=== PATIENT | female | born 1990 | race Caucasian/White ===

== ENCOUNTER 2024-11-11 09:16 | Inpatient (IN) | payer OTHER, BC, SELFPAY ==
[2024-11-11] MEDS: LR 1000 IV ×2 (10:15→15:30)
[2024-11-11 10:16] LABS: Hematocrit 33.9 % (37.0-47.0); Hemoglobin 11.8 g/dL (12.0-16.0); Mean Corp Hgb Conc. 34.8 g/dL (33.0-37.0); Mean Platelet Volume 11.3 fL (7.4-10.4); Platelet Count 192 10^3/uL (130-400); Red Blood Cell Count 3.81 10^6/uL (4.20-5.40); Red Cell Dist. Width 13.3 % (11.5-14.5); White Blood Cell Count 9.7 10^3/uL (4.8-10.8)
[2024-11-11 10:28] LABS: ALT (SGPT) 12 U/L (0-35); AST (SGOT) 18 U/L (14-36); Albumin 3.5 g/dl (3.5-5.0); Alkaline Phosphatase 108 U/L (38-126); Blood Urea Nitrogen 9 mg/dl (7-17); Calcium 9.1 mg/dl (8.4-10.2); Carbon Dioxide 20 mmol/L (22-30); Chloride 112 mmol/L (98-107); Glucose 108 mg/dl (70-99); Sodium 137 mmol/L (135-145); Total Bilirubin 0.4 mg/dl (0.2-1.3); Total Protein 6.2 g/dl (6.3-8.2); eGFR > 60.00
[2024-11-11 10:42] LABS: Protein/creatinine Ratio 0.3; Urine Protein 14 mg/dl
[2024-11-11] MEDS: CYTOTEC VAG (12:58)
[2024-11-11] MEDS: CYTOTEC 25 MICROGRAM VAG (13:03)
[2024-11-11] MEDS: CYTOTEC 50 MICROGRAM PO ×2 (17:36→21:33)
[2024-11-11] MEDS: STADOL 1 MG IV (23:53)
[2024-11-12] MEDS: FENTANYL/BUPIVACAINE 100 EPIDURAL (03:30)
--- NOTE | 2024-11-12 04:21 | DOWNTIME ---
Addendum entered and electronically signed by Shruthi Arriaza RN 11/12/24 14:05:
Correction: Downtime was 11/12/2024 from 0100 to 11/12/2024 at 0415
Original Note:
There was a [employer] Client Hop Worker Downtime on 11/11/2024 from 0100 to 11/12/2024 at 0415. Downtime documentation of patient's care, including medication administrations, has been reconciled in the electronic record per guidelines. Refer to the
patient's paper chart under the miscellaneous tab to see printed paper medication records and downtime forms.
[2024-11-12] MEDS: SUBLIMAZE 100 MCG EPIDURAL (05:48)
[2024-11-12] MEDS: CYTOTEC PO (06:16)
[2024-11-12] MEDS: ANCEF 10 IV (07:09)
[2024-11-12] MEDS: TYLENOL 1000 MG PO (07:09)
[2024-11-12] MEDS: BICITRA 30 ML PO (07:09)
[2024-11-12] MEDS: ZITHROMAX INFUSION 250 IV (07:10)
[2024-11-12 08:00] LABS: Cord ABG HCO3 - POC 28 mmol/L; Cord ABG O2 Sat % - POC 20.2 %; Cord ABG pCO2 - POC 64 mmHg; Cord ABG pH - POC 7.26; Cord ABG pO2 - POC 18 mmHg
--- NOTE | 2024-11-12 08:28 | HPS.HSE ---
Family Physician
-
Family Physician: INTERVIEWE UNKNOWN - PT NOT
Chief Complaint
-
elevated BPs in the office
History of Present Illness
HPI: Patient is a 34yo @40.1 who presented from the office for elevated BPs. BP 1440/72 and 131/90. She denies headache, vision changes, chest pain, shortness of breath or RUQ pain. She denies ctx, VB, or LOF. +FM
complications
- Advanced maternal age
PMHx: denies
Meds: PNV
Surghx: wisdom teeth
NKDA
Socialhx: denies tobacco, etoh or illicit drug use
Famhx: mom w/ thyroid disease
labs: Blood type O+, Ab neg, RPR non-reactive, UCx neg, HBsAg neg, HIV neg, GCCT neg, Rubella immune, Hep C neg, 1hr 75, GBS neg
Medical History
Past Medical History
Past Medical History: Reports None
Past Surgical History: Reports Other
Additional Past Surgical History:
wisdom teeth
Social History
Tobacco: Non-smoker
Alcohol: None
Drug: None
Family History
Family History: Not pertinent
Allergies / Home Medications
Allergies reflects when Allergies were last updated in [facility].
Home Medications with original date entered in [facility]
Allergy/Medication List:
NKDA
Meds: PNV
Review of Systems
-
A 12 point ROS was completed and negative except as noted: Yes
Physical Exam
Physical Exam
General: Well Developed and Well Nourished
HEENT: NormoCephalic
Respiratory: Non Labored Respirations
Cardiac: Regular Rhythm
Genito-urinary: Other (SVE /-3)
Skin: Warm and Dry
Neuro: Awake and Alert
Psych: Calm
Laboratory Results
-
11/11/24 12:24
11/11/24 09:53
Laboratory Results
Total Bilirubin 0.4 mg/dl (0.2-1.3) 11/11/24:53
AST 18 U/L (14-36) 11/11/24:53
ALT 12 U/L (0-35) 11/11/24:53
Alkaline Phosphatase 108 U/L (38-126) 11/11/24:53
Impression/Plan
-
IMPRESSION:
Patient is a 34yo @40.1 preeclampsia without severe features, non-reassuring heart tones
PLAN:
- After epidural placement, FHT with late decelerations improved with repositioning and then tracing with minimal variability. SVE was 4/90/-1 and AROM was performed for meconium stained amniotic fluid. Following, AROM tracing had moderate
variability with accelerations. There was then a 5-6 minute deceleration that improved with repositioning. Tracing then had minimal variability with late decelerations. SVE was unchanged. Given patient was remote from delivery with non-reassuring
heart tones, primary section recommended
- Risks, benefits and alternatives discussed including bleeding, infection, damage to surrounding structures, and need for future operations. She was consented for a blood transfusion if needed. Consents signed
- Ancef 2g and azithromycin 500mg ordered for antibiotic prophylaxis
- Anesthesia and NICU notified
[2024-11-12 08:30] LABS: Cord VBG B.E. - POC 2.4 mmol/L; Cord VBG HCO3 - POC 30 mmol/L; Cord VBG pCO2 - POC 54 mmHg; Cord VBG pH - POC 7.35; Cord VBG pO2 - POC < 18 mmHg
--- NOTE | 2024-11-12 08:34 | OR.RPT ---
Operative Report
Operative Report
Procedure date: 11/12/2024
Preop diagnosis: IUP @40.1, preeclampsia without severe features, non-reassuring heart tones, meconium stained amniotic fluid
Postop diagnosis: same
Procedure: Primary low transverse section
Surgeon: Marvin
Anesthesia: Epidural, Dr. Corbin
QBL: 325mL
Findings: viable male infant born at 0735, Apgars 8/9, normal appearing uterus, bilateral fallopian tubes and ovaries
Complications: none
Indication: Patient is a 34yo @40.1 who presented to Labor and Delivery from the office for elevated blood pressures. Patient did meet criteria for preeclampsia without severe features. She was 1/70/-3 and her induction was started with
Cytotec. She received 3 doses of Cytotec. She progressed to 4cm and received an epidural. After epidural placement, tracing had late decelerations that improved with repositioning. The tracing then had a period of minimal variability. She was
examined and found to be 4/90/-1 and artificial rupture of membranes was performed for meconium stained amniotic. The tracing then had moderate variability with accelerations. A few minute later, there was a prolonged deceleration to the 80-90s. FSE
was placed and patient repositioned with return to baseline. The tracing was then with minimal variability and late decelerations. Given she was remote from delivery and non-reassuring heart tones, primary section was recommended.
Risks, benefits and alternatives to section reviewed and consents signed. Azithromycin and Ancef were ordered for antibiotic prophylaxis. Anesthesia and NICU were notified.
Procedure: Patient was taken to the operating room where epidural was bolused and found to be adequate. 2g of Ancef and 500mg azithromycin were given for antibiotic prophylaxis. The abdomen was prepped with ChloraPrep. The patient was draped in the
normal sterile fashion. She was placed in the dorsal supine position with a left lateral tilt. A Pfannenstiel incision was made with a 10 blade and carried down to the fascia with a scalpel and Bovie cautery. Hemostasis achieved with Bovie. The
fascia was incised and dissected laterally with Coyle scissors. The superior aspect of the fascia was grasped with Jb clamps. The underlying rectus fascia was sharply dissected with Coyle scissors. In a similar fashion the inferior aspect of the
fascia was elevated with Jb clamps and the rectus muscle was dissected off with Coyle scissors. The rectus muscles were down the midline to the level of the pubic symphysis with manual dissection. The peritoneum was bluntly entered and
extended using manual traction and Metzenbaum scissors.
Gonzalez retractor and bladder blade were placed revealing good visualization of the bladder. The vesicouterine peritoneum was identified. A thin lower uterine segment was noted. The lower uterine segment was incised with a scalpel. Meconium
stained amniotic fluid noted at entry. The uterine incision was extended bluntly with lateral and upward traction.
The fetus was in cephalic presentation. The head was elevated out of the pelvis with special attention paid to avoid using the uterine incision as a fulcrum. Gentle fundal pressure was applied once the head was brought to the incision. The head
delivered through the hysterotomy. The rest of the infant delivered without difficulty. Delayed cord clamping was performed. The infant was handed off to the computer programmer chief. IV oxytocin was started to facilitate uterine contractions. The placenta was
manually extracted and sent to pathology for evaluation. The uterus was exteriorized. Allis clamps were placed at the apices of the hysterotomy. The inside of the uterus was wiped with a lap sponge to assure complete removal of placental membranes.
Fundal massage was performed and uterus was boggy. Hemabate was called for, but then tone improved with uterine massage so Hemabate was not given. The uterine incision was closed with 0 Vicryl in a running locked fashion. A horizontal imbricating
stitch was done on the hysterotomy with 0 Vicryl. The hysterotomy was inspected and noted to be hemostatic. The uterus was placed back in the abdomen. Blood clots and fluid were wiped out of the abdomen and pelvis with moist laparotomy sponges. The
hysterotomy was examined and was hemostatic.
The rectus muscles were inspected and were hemostatic. The fascial layer was closed in a running continuous fashion using 0 Vicryl. The subcutaneous tissue was copiously irrigated and any small bleeding vessels were cauterized with Bovie cautery.
The subcutaneous tissue was reapproximated in a running continuous fashion with 2-0 Plain. The skin was closed with 4-0 Vicryl in a subcuticular fashion and covered with skin glue. The patient tolerated the procedure well. All sponge and instrument
counts were correct times two. The patient was taken to the recovery room in stable condition. Giraldo catheter was draining clear urine at the end of the procedure.
[2024-11-12] MEDS: TORADOL 15 MG IV ×3 (09:38→20:39)
[2024-11-13] MEDS: TORADOL 15 MG IV (02:34)
[2024-11-13 05:13] LABS: Hematocrit 27.5 % (37.0-47.0); Hemoglobin 9.7 g/dL (12.0-16.0); Mean Corp Hgb Conc. 35.3 g/dL (33.0-37.0); Mean Corpuscular Hgb 31.5 pg (27.0-31.0); Mean Corpuscular Volume 89.3 fL (81.0-99.0); Mean Platelet Volume 10.7 fL (7.4-10.4); Platelet Count 174 10^3/uL (130-400); Red Blood Cell Count 3.08 10^6/uL (4.20-5.40); Red Cell Dist. Width 13.3 % (11.5-14.5); White Blood Cell Count 13.1 10^3/uL (4.8-10.8)
--- NOTE | 2024-11-13 07:55 | W.PN.ANS.POP ---
Anesthesia Post Operative
- Anesthesia Post Op Note
Vital Signs Stable-See Nursing Note: Yes
Airway Patent: Yes
Adequate Pain Control: Yes
Change in Mental Status: No
Current Postoperative Nausea & Vomiting: No
Anesthesia Complications: No
General Anesthetic Recall: No
Unplanned Admission: No
Post Op Hydration Adequate: Yes
[2024-11-13] MEDS: MYLICON 80 MG PO (09:20)
[2024-11-13] MEDS: FEOSOL 325 MG PO (09:20)
[2024-11-13] MEDS: PRENATAL PLUS 1 TABLET PO (09:20)
[2024-11-13] MEDS: SENOKOT-S 1 TABLET PO (09:20)
[2024-11-13] MEDS: TYLENOL 650 MG PO ×2 (09:23→18:26)
[2024-11-14] MEDS: SENOKOT-S 1 TABLET PO (07:15)
[2024-11-14] MEDS: MYLICON 80 MG PO (07:15)
[2024-11-14] MEDS: PRENATAL PLUS 1 TABLET PO (07:15)
[2024-11-14] MEDS: FEOSOL 325 MG PO (07:16)
[2024-11-14 14:00] LABS: Syphilis/T. pallidum Ab Reflex Negative (Negative)
[2024-11-14] MEDS: TYLENOL 650 MG PO (22:07)
[2024-11-15] MEDS: FEOSOL 325 MG PO (08:40)
[2024-11-15] MEDS: SENOKOT-S 1 TABLET PO (08:40)
[2024-11-15] MEDS: PRENATAL PLUS 1 TABLET PO (08:40)
[2024-11-15] MEDS: TYLENOL 650 MG PO (08:54)
--- NOTE | 2024-11-15 12:47 | W.DS.TRANS ---
DC Summary - Sound Technician
-
Discharge Instructions:
Discharge Diagnosis/Procedures delivered via primary section
, preeclampsia without severe features
Diet No restrictions
Activity No strenuous activity
Driving Restrictions No driving for 2 weeks
Bathing Restrictions OK to Shower
Instructions:
Stand-Alone Forms: LDRP Delivery
LDRP Hypertensive Disorders
Changes to Home Medications: No
Discharge Medications:
DC Medications w/original date entered in [facility]
Vitamin 1 tab PO DAILY Supplement 11/11/24
acetaminophen 325 mg tablet 650 mg (2 x 325 mg) PO Q4HPRN PRN mild pain #1 tab 11/15/24
ferrous sulfate 325 mg (65 mg iron) tablet (FeroSul) 325 mg PO DAILY #1 tab 11/15/24
ibuprofen 600 mg tablet 600 mg PO Q6HPRN PRN cramps #60 tabs 11/15/24
Home Medication Changes
Pending Results: No
--- NOTE | 2024-11-15 12:47 | W.DCSUMMARY ---
Discharge Summary
Discharge Data
Date of Admission: 11/11/24
Date of Discharge: 11/15/24
-
Pending Results: No
Hospital Course
Patient is a 34yo @40.1 who presented to Labor and Delivery from the office for elevated blood pressures on 11/11. Patient did meet criteria for preeclampsia without severe features. She was 1/70/-3 and her induction was started with Cytotec.
She received 3 doses of Cytotec. She progressed to 4cm and received an epidural. After epidural placement, tracing had late decelerations that improved with repositioning. The tracing then had a period of minimal variability. She was examined and
found to be 4/90/-1 and artificial rupture of membranes was performed for meconium stained amniotic. The tracing then had moderate variability with accelerations. A few minute later, there was a prolonged deceleration to the 80-90s. FSE was placed
and patient repositioned with return to baseline. The tracing was then with minimal variability and late decelerations. Given she was remote from delivery and non-reassuring heart tones, primary section was recommended. Patient
underwent primary low transverse section on 11/12, delivering a viable male . The procedure was uncomplicated. QBL was 325mL. On postoperative day one, patient was doing well with no complaints. Her hemoglobin was 9.7 and she was
started on iron. On postop day two, there were no concerns. On postop day three, she was meeting all postoperative milestones. She was tolerating a regular diet, voiding spontaneously, no heavy lochia, and ambulating without difficulty. Her pain was
well controlled. She had no signs or symptoms of severe preeclampsia. Her blood pressures were well controlled on no medications. She was discharged home after discharge instructions and returned precautions were reviewed. Signs and symptoms of
severe features of preeclampsia were reviewed with the patient. She was instructed to follow up in one week for a BP check.
Discharge Plan
-
Patient Disposition: Home (Routine Discharge)
Discharge Diagnosis/Procedures: delivered via primary section, preeclampsia without severe features
Condition: Good
Diet: No restrictions
Activity: No strenuous activity
Driving Restrictions: No driving for 2 weeks
Bathing Restrictions: OK to Shower
Activity Restrictions/Additional Instructions:
Please call the office if BP >160/110 (either number), headaches not relieved with medication, chest pain, shortness of breath or pain in the upper abdomen on the right side.
Stand Alone Forms: LDRP Delivery, LDRP Hypertensive Disorders
Referrals:
Anastasia Wong, DO [Active, Gynecology] - in two weeks
UNKNOWN - PT NOT,INTERVIEWE [Family Provider]
Prescriptions:
New
ferrous sulfate [FeroSul] 325 mg (65 mg iron) Tablet
325 mg PO DAILY Qty: 1 0RF
acetaminophen 325 mg Tablet
650 mg PO Q4HPRN PRN (Reason: mild pain) Qty: 1 0RF
ibuprofen 600 mg Tablet
600 mg PO Q6HPRN PRN (Reason: cramps) Qty: 60 0RF
Continued
Vitamin
1 tab PO DAILY
Discharge Orders:
Discharge Patient (As Directed); Ordered 11/15/24
Ordered By: Anastasia Wong
Discharge Date and Time
Discharge Date/Time: 11/15/24 11:36
Print Language: AZERI
== END 2024-11-15 11:36 | disposition home or self-care (01) | DRG 788 ==
LOC: LDRP 09:16
PROVIDERS: ADMITTING PHYSICIAN Student in an Organized Health Care Education/Training Program
PROC: 3E0P7VZ Introduction of Hormone into Female Reproductive, Via Natural or Artificial Opening (ICD-10-PCS; 2024-11-11)
PROC: 10D00Z1 Extraction of Products of Conception, Low, Open Approach (ICD-10-PCS; 2024-11-12)
PROC: 10907ZC Drainage of Amniotic Fluid, Therapeutic from Products of Conception, Via Natural or Artificial Opening (ICD-10-PCS; 2024-11-12)
DX: O48.0 Post-term pregnancy (principal); Z3A.40 40 weeks gestation of pregnancy; O76 Abnormality in fetal heart rate and rhythm complicating labor and delivery; O77.0 Labor and delivery complicated by meconium in amniotic fluid; O14.04 Mild to moderate pre-eclampsia, complicating childbirth; Z37.0 Single live birth
CPT/HCPCS: 88307; 36415; 80053; 82570; 84156; 85027; 86780; 86850; 86900; 86901